=== PATIENT | female | born 1980 | race Caucasian/White ===

== ENCOUNTER 2024-06-04 14:28 | Emergency (ER) | payer BC ==
[~2024-06-04] VITALS: Wt 45.4 kg
[2024-06-04] MEDS ORDERED: SUBOXONE 12 MG1 EACH SL (15:31)
[2024-06-04] MEDS ORDERED: DILANTIN100 MG PO (15:31)
[2024-06-04] MEDS ORDERED: REMERON15 M2 PO (15:31)
== END 2024-06-04 16:27 | disposition home or self-care (01) ==
LOC: ED 14:28
DX: G56.31 Lesion of radial nerve, right upper limb (principal); Z88.6 Allergy status to analgesic agent; Z88.8 Allergy status to other drugs, medicaments and biological substances; Z87.891 Personal history of nicotine dependence